=== PATIENT | female | born 1960 | race American Indian/Alaskan Native ===

== ENCOUNTER 2016-08-27 11:25 | Day surgery (SDC) | payer MEDICAID ==
[2016-08-27 12:19] VITALS: BMI 25.9
[2016-08-27] MEDS ORDERED: Lidocaine Hydrochloride 5 ML INJ ONE (12:44)
[2016-08-27] MEDS ORDERED: Propofol 10 mg/ml Inj (20 ML) ONE (12:44)
[2016-08-27] MEDS ORDERED: Lactated Ringer's 1,000 ML IV SCH (12:45)
--- NOTE | 2016-08-27 12:55 | CP.SDSHP ---
Same Day Surgery H & P - History Proposed Procedure: colonoscopy - Previous Medical/Surgical History Cardiac: Hypertension Pulmonary: Asthma - Allergies Allergies: Allergies pollen extracts Allergy (Intermediate, Verified 08/27/16 12:18) ITCHING seafood Allergy (Intermediate, Uncoded 08/27/16 12:18) RASH - Date & Time Date: 08/27/16 Time: 12:54 Short Stay Discharge - Short Stay Discharge Admitting Diagnosis/Reason for Visit: ENCOUNTER FOR SCREENING FOR MALIGNANT NEOPLASM OF Disposition: HOME/ ROUTINE
[2016-08-29 15:36] VITALS: BP 116/66; PULSE 64; RESP 14; TEMP 98.3; O2SAT 97
== END 2016-08-27 14:33 | disposition home or self-care (01) ==
LOC: C.ENDO 11:25
PROVIDERS: ATTEND Colon & Rectal Surgery
DX: Z12.11 Encounter for screening for malignant neoplasm of colon (principal); Q43.8 Other specified congenital malformations of intestine; K64.8 Other hemorrhoids; I10 Essential (primary) hypertension; J45.909 Unspecified asthma, uncomplicated
CPT/HCPCS: 45378; 82948; J2704; J7120